=== PATIENT | female | born 1980 ===

== ENCOUNTER 2018-01-06 19:51 | Emergency (ER) | payer MEDICAID ==
[2018-01-06 20:19] VITALS: BMI 25.4
[2018-01-06 21:16] LABS: BASO # 0.03 K/mm3 (0.0-2.0); BASO % 0.2 % (0.0-3.0); EOS % 0.1 % (1.5-5.0); GRAN # 9.86 (1.4-6.5); GRAN % 79.4 % (50.0-68.0); LYMPH # 1.9 (1.2-3.4); LYMPH % 15.4 % (22.0-35.0); MEAN CELL VOLUME 87.3 fl (80.0-105.0); MEAN CORPUSCULAR HEMOGLOBIN 30.5 pg (25.0-35.0); MEAN CORPUSCULAR HGB CONC 34.9 g/dl (31.0-37.0); MEAN PLATELET VOLUME 11.1 fl (7.0-11.0); MONO # 0.6 (0.1-0.6); MONO % 4.9 % (1.0-6.0); RBC 4.26 10^6/uL (3.5-6.1); RED CELL DISTRIBUTION WIDTH 12.5 % (11.5-14.5); WHITE BLOOD COUNT 12.4 10^3/ul (4.5-11.0)
--- NOTE | 2018-01-06 21:23 | ED PDOC ---
Arrival/HPI - General Chief Complaint: Trauma Time Seen by Provider: 01/06/18 19:58 Historian: Patient - History of Present Illness Narrative History of Present Illness (Text): 01/06/18 21:18 37yo female with no pmhx present with left sided buttocks pain s/p trauma today. The daughter by the bedside states while patient was walking up flight of stairs earlier today, the stairs collapsed and she landed on a piece wood. She reports mild pain to the area. Did not take any medication for the pain. Denies any other complaint. Past Medical History - Provider Review Nursing Documentation Reviewed: Yes - Infectious Disease Hx of Infectious Diseases: None - Cardiac Hx Cardiac Disorders: No - Psychiatric Hx Substance Use: No - Anesthesia Hx Anesthesia: No Family/Social History - Physician Review Nursing Documentation Reviewed: Yes Family/Social History: Unknown Family HX Smoking Status: Never Smoked Hx Alcohol Use: No Hx Substance Use: No Allergies/Home Meds Allergies/Adverse Reactions: Allergies No Known Allergies Allergy (Verified 01/06/18 20:22) Review of Systems - Physician Review All systems were reviewed & negative as marked: Yes - Review of Systems Constitutional: Normal Eyes: Normal ENT: Normal Respiratory: Normal Cardiovascular: Normal Gastrointestinal: Normal Genitourinary Female: Normal Musculoskeletal: Other (Right buttocks pain) Skin: Normal Neurological: Normal Endocrine: Normal Hemo/Lymphatic: Normal Psychiatric: Normal Physical Exam Vital Signs Reviewed: Yes Vital Signs Pulse Resp Pulse Ox 01/07/18 00:58 78 18 98 Temperature: Afebrile Blood Pressure: Normal Pulse: Regular Respiratory Rate: Normal Appearance: Positive for: Well-Appearing, Non-Toxic, Comfortable Pain Distress: None Mental Status: Positive for: Alert and Oriented X 3 - Systems Exam Head: Present: Atraumatic, Normocephalic Pupils: Present: PERRL Extroacular Muscles: Present: EOMI Conjunctiva: Present: Normal Mouth: Present: Moist Mucous Membranes Neck: Present: Normal Range of Motion Respiratory/Chest: Present: Clear to Auscultation, Good Air Exchange. No: Respiratory Distress, Accessory Muscle Use Cardiovascular: Present: Regular Rate and Rhythm, Normal S1, S2. No: Murmurs Abdomen: No: Tenderness, Distention, Peritoneal Signs Back: Present: Normal Inspection Upper Extremity: Present: Normal Inspection. No: Cyanosis, Edema Lower Extremity: Present: Other (Approximately 12 x 10cm hematoma noted to left buttocks). No: Edema Neurological: Present: GCS=15, CN II-XII Intact, Speech Normal Skin: Present: Warm, Dry, Normal Color. No: Rashes Psychiatric: Present: Alert, Oriented x 3, Normal Insight, Normal Concentration Medical Decision Making ED Course and Treatment: 01/07/18 01:35 PT in ED for stated history. Large hematoma was noted on the left buttocks with surrounding swelling. No thrills was felt. she reported mild pain to the area Pelvic CT IMPRESSION: No acute fracture or dislocation. Large soft tissue hematoma in the left perineum and buttock Thank you for allowing us to participate in the care of your patient. Occult test was negative Pt was observed for over 3hrs in ED, and they was no worsening swelling noted. Pressure dressing was applied and she was advised to apply ice ti area. Advised to return to ED immidiately for worsening swelling. - Lab Interpretations Lab Results: 01/06/18 21:00 01/06/18 21:00 Lab Results 01/06/18 21:00: Sodium 141, Potassium 3.8, Chloride 104, Carbon Dioxide 23, Anion Gap 17, BUN 13, Creatinine 0.6 L, Est GFR ( Amer) > 60, Est GFR ( Non-Af Amer) > 60, Random Glucose 101, Calcium 9.5, Total Bilirubin 0.9, AST 36 , ALT 23, Alkaline Phosphatase 68, Total Protein 7.8, Albumin 4.7, Globulin 3.1 , Albumin/Globulin Ratio 1.5 01/06/18 21:00: PT 12.2, INR 1.07, APTT 26.6 01/06/18 21:00: WBC 12.4 H, RBC 4.26, Hgb 13.0, Hct 37.2, MCV 87.3, MCH 30.5, MCHC 34.9, RDW 12.5, Plt Count 241, MPV 11.1 H, Gran % 79.4 H, Lymph % (Auto) 15.4 L, [place] % (Auto) 4.9, Eos % (Auto) 0.1 L, Baso % (Auto) 0.2, Gran # 9.86 H , Lymph # (Auto) 1.9, [place] # (Auto) 0.6, Eos # (Auto) 0.0, Baso # (Auto) 0.03 - RAD Interpretation Radiology Orders: 01/06/18 20:23 PELVIS W/IV CONTRAST ONLY [CT] Stat Disposition/Present on Arrival - Present on Arrival Any Indicators Present on Arrival: No History of DVT/PE: No History of Uncontrolled Diabetes: No Urinary Catheter: No History of Decub. Ulcer: No History Surgical Site Infection Following: None - Disposition Have Diagnosis and Disposition been Completed?: Yes Diagnosis: Hematoma and contusion Disposition: HOME/ ROUTINE Disposition Time: 12:10 Patient Plan: Discharge Condition: STABLE Discharge Instructions (ExitCare): Contusion (DC) Additional Instructions: Apply ice to area and follow up with your Doctor Return to ED immediately if swelling worsens Prescriptions: traMADol [Ultram] 50 mg PO TID #10 tab Referrals: Mazin Botello JD, MD [Primary Care Provider] - Follow up with primary Forms: [employer] ([place])
[2018-01-06 21:26] LABS: ALB/GLOB RATIO 1.5 (1.1-1.8); ALBUMIN 4.7 g/dL (3.0-4.8); ALT/SGPT 23 U/L (7-56); AST/SGOT 36 U/L (14-36); BLOOD UREA NITROGEN 13 mg/dL (7-21); CALCIUM 9.5 mg/dL (8.4-10.5); GFR NON-AFRICAN AMERICAN > 60
[2018-01-06 21:28] LABS: INR 1.07; PARTIAL THROMBOPLASTIN TIME 26.6 Seconds (25.1-36.5); PROTHROMBIN TIME 12.2 SECONDS (9.4-12.5)
[2018-01-06] MEDS ORDERED: Iohexol 350 MG/100 ML VIAL ONE (21:29)
[2018-01-07 00:59] VITALS: PULSE 78; RESP 18; O2SAT 98
--- NOTE | 2018-01-07 07:18 | CT ---
Date of service: 01/06/2018 PROCEDURE: CT Pelvis with contrast HISTORY: hematoma COMPARISON: None available. TECHNIQUE: Contiguous axial images of the pelvis with contrast. Coronal and sagittal reformats generated. Contrast dose: Radiation dose: Total exam DLP = 200 mGy-cm. This CT exam was performed using one or more of the following dose reduction techniques: Automated exposure control, adjustment of the mA and/or kV according to patient size, and/or use of iterative reconstruction technique. FINDINGS: BLADDER: Unremarkable. No mass. REPRODUCTIVE ORGANS: Unremarkable. VISUALIZED BOWEL: Unremarkable. PERITONEUM: Unremarkable, as visualized. No free fluid. No free air. LYMPH NODES: Unremarkable. No enlarged lymph nodes. VASCULATURE: Unremarkable. BONES: No fracture or focal lesion. OTHER FINDINGS: Large hematoma in the mid left medial but sock with extensive surrounding to stranding. The largest portion of the hematoma measure 8.1 x 5.7 x 5.4 centimeters descending and. There is hematoma in the left perianal area measuring 5.8 x 3.2 centimeters. IMPRESSION: Large hematoma in the mid left medial but sock with extensive surrounding to stranding. The largest portion of the hematoma measure 8.1 x 5.7 x 5.4 centimeters descending and. There is hematoma in the left perianal area measuring 5.8 x 3.2 centimeters.
== END 2018-01-07 00:58 | disposition home or self-care (01) ==
LOC: ED 19:51
DX: S30.0XXA Contusion of lower back and pelvis, initial encounter (principal); W22.8XXA Striking against or struck by other objects, initial encounter
CPT/HCPCS: 72193; 80053; 85025; 85610; 85730; 99284; Q9967